=== PATIENT | female | born 1965 | race Caucasian/White ===

== ENCOUNTER → 2016-07-19 | Outpatient (CLI) | payer OTHER ==
--- NOTE | 2016-07-20 07:35 | DIAGNOSTIC IMAGING REPORT ---
MRI OF THE CERVICAL SPINE WITHOUT CONTRAST CLINICAL HISTORY: Neck pain radiating into both upper extremities. COMPARISON: None TECHNIQUE: Utilizing a 1.5 Maite magnet and dedicated coil, multiplanar, multiecho imaging of the cervical spine was performed without IV contrast. FINDINGS: There is slight straightening of the normal cervical lordosis. Vertebral body heights are maintained. There is no marrow replacement. Cervical cord signal and caliber are normal. There is no intracanalicular mass or fluid collection. Visualized portions of the posterior fossa and paravertebral soft tissues are unremarkable. Multilevel posterior disc osteophyte complexes are noted which are superimposed upon what appears to be a congenitally narrow central canal. C2-C3: The central canal and neural foramen are patent. C3-C4: Minimal posterior disc osteophyte complex contacts the ventral aspect of the cord. There is mild central canal stenosis. The neural foramen are patent. C4-C5: There is mild posterior disc osteophyte complex. This contacts the ventral aspect of the cord. There is mild narrowing of the central canal. The neural foramen are patent. C5-C6: Mild posterior disc osteophyte complex results in mild narrowing of the central canal. The neural foramen are patent. C6-C7: The central canal and neural foramen are patent. C7-T1: The central canal and neural foramen are patent. IMPRESSION: 1. Small posterior disc osteophyte complexes at C3-C4, C4-C5 and C5-C6. These contact the ventral aspect of the cord and result in mild multilevel central canal stenosis. 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 2. Normal cervical cord signal and caliber. 3. Patent neural foramen. Electronically signed by: Tano Godfrey M.D. 07/20/2016 7:33 AM
== END | disposition home or self-care (01) ==
LOC: C.MRI 13:23
PROVIDERS: ATTEND Nurse Practitioner
DX: M50.90 Cervical disc disorder, unspecified, unspecified cervical region (principal)

== ENCOUNTER → 2016-08-10 | Outpatient (CLI) | payer OTHER ==
--- NOTE | 2016-08-10 13:00 | DIAGNOSTIC IMAGING REPORT ---
CT SCAN OF THE CHEST WITHOUT IV CONTRAST CLINICAL HISTORY: Pulmonary nodule. COMPARISON STUDY: No priors. TECHNIQUE: CT scan of the thorax was performed from the thoracic inlet to the upper abdomen. Images are reviewed in the axial, sagittal, and coronal planes. IV contrast was not administered for this examination. CT DOSE: 253.37 mGycm FINDINGS: Thyroid: Imaged portions of the thyroid gland are normal in size and attenuation. Thoracic aorta: There is mild ectasia of the ascending thoracic aorta which measures up to 3.8 cm. The remainder of the thoracic aorta is normal in caliber, and the arch demonstrates standard 3-vessel anatomy. Heart: The heart is normal in size and without pericardial effusion. Lungs and pleural spaces: There is no lobar consolidation or pleural effusion. There is a 12 mm groundglass nodule at the left lung base seen on image #243. A similar-appearing groundglass nodule is seen at the right lung base on image #241 and measures 9 mm. Additional 3 mm pulmonary and pleural-based nodules in the left lower lobe are seen on images #177 and #224. Foci of nodular pleural thickening are noted along the left major fissure in the left upper lobe on image #106. These measure up to 4 mm. Small fat-containing Bochdalek hernias are present at both lung bases. Mediastinum: There are numerous subcentimeter mediastinal lymph nodes. These are not pathologically enlarged by size criteria but greater in number than expected. The largest node is in the left paratracheal region seen on image #63 and measures 9 mm in short axis. Mita: Not well assessed without IV contrast. Axillae: There are mildly enlarged left axillary lymph nodes. The largest node is seen on axial image #63 and measures 10 mm in short axis. Surgical clips are noted in the left axilla. No right axillary adenopathy is identified. Upper abdomen: There is a tiny hiatal hernia. Partially visualized upper abdominal viscera is otherwise within normal limits. Skeletal structures: No lytic or blastic bony lesions are seen. IMPRESSION: 1. There are mildly enlarged left axillary lymph nodes. Left axillary surgical clips are identified. Correlation with the patient's clinical/surgical/oncological history will be required. 2. A single groundglass nodule is present at both lung bases and these measure up to 12 mm. These are pathologically indeterminant and could be on an infectious/inflammatory basis. Low-grade neoplasm is not excluded. A precautionary 3 month follow-up chest CT is recommended for reassessment. 3. Additional low suspicion pulmonary and pleural-based nodules measure up to 4 mm. These can also be reassessed at follow-up. 4. There are numerous prominent mediastinal lymph nodes. These are not pathologically enlarged by size criteria but greater in number than expected. These may be on a reactive basis and can also be reassessed at follow-up. 5. There is mild ectasia of the ascending thoracic aorta which measures up to 3.8 cm in diameter. The remainder of the thoracic aorta is normal in caliber. Electronically signed by: Isreal Jean Baptiste M.D. 08/10/2016 12:58 PM Dictated Date/Time: 08/10/2016 12:47 PM
== END | disposition home or self-care (01) ==
LOC: C.CTS 12:34
PROVIDERS: ATTEND Specialist
DX: R91.1 Solitary pulmonary nodule (principal); R59.0 Localized enlarged lymph nodes